=== PATIENT | male | born 1975 | race Caucasian/White ===

== ENCOUNTER → 2018-11-04 | Outpatient (CLI) | payer BC ==
[~2018-11-04] MED LIST: CALC-866 PO; LISI1TAB11 PO
== END | disposition home or self-care (01) ==
LOC: RAH 07:39
PROVIDERS: ATTEND Family Medicine
DX: M48.02 Spinal stenosis, cervical region (principal); M54.12 Radiculopathy, cervical region
CPT/HCPCS: 72141

== ENCOUNTER → 2024-10-06 | Outpatient (CLI) | payer BC ==
[~2024-10-06] MED LIST changes: -LISI1TAB11 PO; +LISI1TAB51 PO
--- NOTE | 2024-10-06 16:17 | HMCIMG ---
SCOLIOSIS 1VW REASON: OTHER SECONDARY KYPHOSIS, CERVICAL REGION. COMPARISON: None TECHNIQUE: 3 images of scoliosis series obtained. FINDINGS: There is levoscoliosis of thoracolumbar spine with scoliotic angle of 7 degrees. No loss of vertebral height is seen. IMPRESSION: Mild levoscoliosis of the lumbar spine.
== END | disposition home or self-care (01) ==
LOC: RAH 15:01
PROVIDERS: ATTEND Physical Medicine & Rehabilitation
DX: M41.85 Other forms of scoliosis, thoracolumbar region (principal)
CPT/HCPCS: 72081

== ENCOUNTER → 2024-11-17 | Outpatient (CLI) | payer BC ==
--- NOTE | 2024-11-17 16:48 | HMCIMG ---
MR SPINAL CANAL, CERV WO CON HISTORY: Radiculopathy COMPARISON: 11/04/2018 TECHNIQUE: MRI of the cervical spine was performed utilizing multiple pulse sequences in axial, coronal and sagittal plane. Patient was not given contrast through intravenous route. FINDINGS: Endplate degenerative changes are seen with the space narrowing at C6-7 level. No loss of vertebral height is seen. There is straightening of normal lordotic cervical curvature which may be related to muscle spasm or positioning. Degenerative disc signals are present at all cervical spine levels. Cerebellar tonsils are in normal position. The cervical cord is of normal signal intensity without cord compression or impingement. At the C2-3 level, there is minimal annular disc bulge causing anterior CSF space effacement without associated neural foraminal stenosis. The central canal measures approximately 7.9 mm in its anterior posterior dimension. At the C3-4 level, there is minimal annular disc bulge causing anterior CSF space effacement without associated neural foraminal stenosis. The central canal measures approximately 6.3 mm in its anterior posterior dimension. At the C4-5 level, there is spondylotic disc causing anterior CSF space effacement with bilateral lateral recess stenosis and bilateral neural foraminal stenosis. The central canal measures approximately 5.8 mm in its anterior posterior dimension. At the C5-6 level, there is spondylotic disc causing anterior CSF space effacement with bilateral lateral recess stenosis and bilateral neural foraminal stenosis. The central canal measures approximately 4.8 mm in its anterior posterior dimension. At the C6-7 level, there is spondylotic disc causing anterior CSF space effacement with bilateral lateral recess stenosis and bilateral neural foraminal stenosis. The central canal measures approximately 5.3 mm in its anterior posterior dimension. IMPRESSION: 1. 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
== END | disposition home or self-care (01) ==
LOC: RAH 15:16
PROVIDERS: ATTEND Physical Medicine & Rehabilitation
DX: M47.22 Other spondylosis with radiculopathy, cervical region (principal); M48.02 Spinal stenosis, cervical region; M54.2 Cervicalgia
CPT/HCPCS: 72141

== ENCOUNTER → 2025-04-21 | Outpatient (CLI) | payer BC ==
--- NOTE | 2025-04-26 17:05 | HMCIMG ---
CLINICAL INFORMATION Left knee pain COMPARISON None. TECHNIQUE 2 view left knee FINDINGS Bones: No acute fracture. No destructive osseous abnormality. Alignment: Normal. Joints: Normal. Effusion: None Soft Tissues: Normal. IMPRESSION No acute bony findings or significant degenerative changes. /[place]
== END | disposition home or self-care (01) ==
LOC: RAH 08:18
PROVIDERS: ATTEND Family Medicine
DX: M25.562 Pain in left knee (principal)
CPT/HCPCS: 73560